=== PATIENT | female | born 1995 | race Hispanic/Latino ===

== ENCOUNTER 2016-11-03 02:01 | Emergency (ER) | payer BC ==
[2016-11-03 02:07] VITALS: BP 139/80; PULSE 99; RESP 18; TEMP 98.9; O2SAT 100
[2016-11-03 02:08] VITALS: BMI 22.1
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
== END 2016-11-03 03:50 | disposition home or self-care (01) ==
LOC: H.ER 02:01
DX: F32.9 Major depressive disorder, single episode, unspecified (principal); Z00.8 Encounter for other general examination